=== PATIENT | female | born 1975 | race African-American/Black ===

== ENCOUNTER 2018-04-03 10:12 | Emergency (ER) | payer OTHER ==
[2018-04-03 10:23] VITALS: TEMP 98; BMI 31.5
--- NOTE | 2018-04-03 10:30 | PDOC ---
History of Present Illness - General Chief Complaint: Lightheaded Stated Complaint: PAIN Time Seen by Provider: 04/03/18 10:30 History Source: Patient Exam Limitations: No Limitations - History of Present Illness Initial Comments: 42 yo F w a pmh of hypertension, prediabetes, anemia, and hyperlipidemia presents to the ER after she experienced an episode of right sided stabbing chest discomfort earlier today which she says radiated up to her neck and down her right arm. She says the pain comes out of nowhere and is not associated with physical exertion. She does endorse right arm numbness when the discomfort comes on. She is not currently experiencing any chest discomfort. When the chest discomfort happens she often feels lightheaded. She denies any diaphoresis associated with these episodes. She endorses having the flu 3 weeks ago, otherwise no recent infections. She denies any fevers, chills, SOB, difficulty breathing, dysuria, frequency, urgency, abdominal pain, diarrhea, constipation, headache, blurry vision, neck pain, leg pain, vertigo, or weakness. PCP: Preet Busby PSH: Myomectomy Allergies: NKA, NKDA Social Hx: Denies smoking, drinking, or other substance usage Past History - Past Medical History Allergies/Adverse Reactions: Allergies Allergy/AdvReac Type Severity Reaction Status Date / Time No Known Drug Allergies Allergy Verified 04/03/18 10:18 Home Medications: Ambulatory Orders Amlodipine Besylate [Norvasc -] 10 mg PO DAILY 04/03/18 Metoprolol Succinate 25 mg PO DAILY 04/03/18 Anemia: Yes Asthma: No Cancer: No Cardiac Disorders: No CVA: No COPD: No CHF: No Dementia: No Diabetes: Yes (PRE) GI Disorders: No Disorders: No HTN: Yes Hypercholesterolemia: Yes Liver Disease: No Seizures: No Thyroid Disease: No - Surgical History Abdominal Surgery: No Appendectomy: No Cardiac Surgery: No Cholecystectomy: No Lung Surgery: No Neurologic Surgery: No Orthopedic Surgery: No - Suicide/Smoking/Psychosocial Hx Smoking Status: No Smoking History: Never smoked Number of Cigarettes Smoked Daily: 0 Hx Alcohol Use: No Drug/Substance Use Hx: No Substance Use Type: None Hx Substance Use Treatment: No Review of Systems - Review of Systems Able to Perform ROS?: Yes Comments:: CONSTITUTIONAL: Absent: fever, no chills, no fatigue EYES: Absent: visual changes ENT: Absent: ear pain, no sore throat CARDIOVASCULAR: Present: Chest pain, lightheadedness. Absent: no palpitations RESPIRATORY: Absent: cough, no SOB GI: Absent: abdominal pain, no nausea, no vomiting, no constipation, no diarrhea GENITOURINARY: Absent: dysuria, no frequency, no hematuria MUSKULOSKELETAL: Absent: back pain, no arthralgia, no myalgia SKIN: Absent: rash NEURO: Absent: headache *Physical Exam - Vital Signs Last Vital Signs Temp Pulse Resp BP Pulse Ox 98 F 91 H 19 145/95 100 04/03/18 10:18 04/03/18 10:18 04/03/18 10:18 04/03/18 10:18 04/03/18 10:18 - Physical Exam Comments: GENERAL: Well-appearing, well-nourished. No apparent distress. HEENT: Normocephalic, atraumatic. PERRL, EOM intact. CARDIOVASCULAR: Normal S1, S2. Regular rate and rhythm. CHEST: There is point tenderness at the costochondral junction which is reproducible and worse with right arm motion. PULMONARY: No evidence of respiratory distress. Lungs clear to auscultation bilaterally. No wheezing, rales or rhonchi. ABDOMEN: Soft, non-distended, non-tender. EXTREMITIES: Normal ROM in all four extremities. No gross deformities. SKIN: Warm, dry. No rash NEUROLOGICAL: No focal neurological deficits. Moderate Sedation - Procedure Monitoring Vital Signs: Procedure Monitoring Vital Signs Temperature 98 F 04/03/18 10:18 Pulse Rate 91 H 04/03/18 10:18 Respiratory Rate 19 04/03/18 10:18 Blood Pressure 145/95 04/03/18 10:18 O2 Sat by Pulse Oximetry (%) 100 04/03/18 10:18 ED Treatment Course - LABORATORY CBC & Chemistry Diagram: 04/03/18 11:15 04/03/18 11:20 Medical Decision Making - Medical Decision Making 42 yo F w a pmh of hypertension, prediabetes, anemia, and hyperlipidemia presents to the ER after she experienced an episode of right sided stabbing chest discomfort earlier today which she says radiated up to her neck and down her right arm. She says the pain comes out of nowhere and is not associated with physical exertion. She does endorse right arm numbness when the discomfort comes on. She is not currently experiencing any chest discomfort. When the chest discomfort happens she often feels lightheaded. She denies any diaphoresis associated with these episodes. She endorses having the flu 3 weeks ago, otherwise no recent infections. - VSS DDx IBNLT: ACS/NY, arrhythmia, electrolyte abnormality, costochondritis, post- viral pleuritis, dehydration, pneumothorax, PNA Plan: Labs, Urine, CXR, EKG, analgesia, IV hydration, re-assess. Labs unremarkable and WNL CXR clean EKG shows no ST segment elevation or depression. Not concerning for ACS. The point tenderness at the costochondral junction is suggestive of costochondritis. Patient feels better after analgesia. Will DC with cardio follow up. *DC/Admit/Observation/Transfer Diagnosis at time of Disposition: Atypical chest pain, Costochondritis - Discharge Dispostion Disposition: HOME Condition at time of disposition: Improved Decision to Admit order: No - Referrals Referrals: Doyle Yadav MD [Staff Physician] - - Patient Instructions Printed Discharge Instructions: DI for Atypical Chest Pain, DI for Costochondritis, DI for Chest Pain Additional Instructions: You came into the ER after experiencing some right sided rib discomfort. We looked at your blood and urine and found no abnormalities. We also did a chest x -ray and and electrocardiogram which were normal and had no obvious abnormalities. We believe your chest discomfort is musculoskeletal in nature, possibly costochondritis - see attached handout for further explanation. We are giving you the number for a nurse rn bsn to follow up with. Please make sure to schedule an appointment in the next 48 to 72 hours. Take advil/motrin/tylenol as needed for pain control. Drink plenty of fluids. Come back to the ER if your pain worsens, you get a fever, can't breathe or have any other new or worsening concerns. Thank you for coming to the [facility] ER. We hope you feel better soon! Print Language: MAURITIAN - Post Discharge Activity
[2018-04-03] MEDS ORDERED: SODIUM CHLORIDE 1,000 ML IV STA (10:38)
[2018-04-03] MEDS ORDERED: ASPIRIN 81 MG CHEWABLE TABLETS PO ONE (10:38)
[2018-04-03] MEDS ORDERED: ACETAMINOPHEN 325 MG TABLET (FP) PO ONE (10:39)
--- NOTE | 2018-04-03 11:09 | PDOC ---
Attending Attestation - Resident Resident Name: Silvio Pierson - ED Attending Attestation I have performed the following: I have examined & evaluated the patient, The case was reviewed & discussed with the resident, I agree w/resident's findings & plan, Exceptions are as noted - HPI HPI: 04/03/18 11:24 42y F hx of htn, hl, pre-dm presents with complaint of cp, dizziness. Pt states she was feeling well this morning, was at work was drinking coffee and got up to walk around and noticed she started feeling lightheaded like she was about to pass out associated with palpitations, mild R sharp sided chest pain, tingling in her arms lasting a few seconds before resolving. associated with nausea w/o vomiting, diaphoresis. Pt denies any sob,hemoptysis, cough, vertigo, focal weakness, diarrhea, melena, bpr, dysuria, frequency. Pt notes she had similar symptoms last year wand went to an ER in [place] and was observed. She was given fu with primary care. notes she is currently feeling better. - Physicial Exam PE: 04/03/18 11:28 GENERAL: The patient is awake, alert, and fully oriented, Nontoxic - in no acute distress. HEAD: Normocephalic, atraumatic. EYES: extraocular movements intact, sclera anicteric, conjunctiva clear. ENT: Normal voice, Moist mucous membranes. NECK: Normal range of motion, supple LUNGS: Breath sounds equal, clear to auscultation bilaterally. No wheezes, no rhonchi, no rales. HEART: Regular rate and rhythm, normal S1 and S2 without murmur, rub or gallop. ABDOMEN: Soft, nontender, No guarding, no rebound. . No CVA tenderness EXTREMITIES: Normal range of motion, no edema. No clubbing or cyanosis. No cords, erythema, or tenderness. NEUROLOGICAL: No facial assymetry, Normal speech, PSYCH: Normal mood, normal affect. SKIN: Warm, Dry, normal turgor, - Medical Decision Making 04/03/18 11:28 ddx is wide and includes but is not limieted to arrthmia, acs, vertigo metabolic dernagement, anemia will ck labs, screening ekg and trop fluids for hydration bp on both arms are symmetric 138/92 on R arm and 136/86 on L arm, so do not think dissection likely (her symptoms of pain lasting for split second then resolving is also inconsistent) will reassess 04/03/18 13:09 pt feelig improved lbs reivewed pt does have worsening of her symptoms with movement of her arm and is ttp suspect possible msk cause will recommend uspportive care Heart Score/ECG Review - ECG Impressions Comment:: 04/03/18 11:46 Twelve-lead EKG was performed and reviewed by me. There is normal sinus rhythm with a normal rate. rate of 93 The axis is normal. The intervals are normal. abnormal R wave progression
[2018-04-03] MEDS ORDERED: ACETAMINOPHEN 325 MG TABLET (FP) ONE ×2 (11:19→11:29)
[2018-04-03] MEDS ORDERED: ASPIRIN 81 MG CHEWABLE TABLETS ONE (11:20)
[2018-04-03 11:36] LABS: BASO % 0.9 % (0-2.0); EOS % 4.7 % (0-4.5); HEMATOCRIT 35.4 % (32.4-45.2); MCH 26.3 pg (25.7-33.7); MCHC 33.9 g/dl (32.0-36.0); MEAN CELL VOLUME 77.5 fl (80-96); MEAN PLT VOLUME 8.3 fl (7.5-11.1); MONO % 10.8 % (3.8-10.2); NEUT % 47.6 % (42.8-82.8); PLATELET COUNT 305 K/MM3 (134-434); RBC 4.57 M/mm3 (3.60-5.2); WHITE BLOOD COUNT 5.5 K/mm3 (4.0-10.0)
[2018-04-03 12:00] LABS: HCG,QUALITATIVE URINE Negative
[2018-04-03 12:05] LABS: URINE APPEARANCE CLEAR; URINE BILIRUBIN NEGATIVE (<2.0 mg/dL); URINE COLOR LTYELLOW; URINE GLUCOSE (UA) NEGATIVE (NEGATIVE); URINE KETONE NEGATIVE (NEGATIVE); URINE LEUK ESTERASE NEGATIVE (NEGATIVE); URINE NITRITE NEGATIVE (NEGATIVE); URINE PROTEIN NEGATIVE (NEGATIVE); URINE UROBILINOGEN NEGATIVE mg/dL (0.2-1.0)
[2018-04-03 12:05] LABS: ALBUMIN 3.3 g/dl (3.4-5.0); ALK PHOS 44 U/L (45-117); ANION GAP 7 MMOL/L (8-16); BILIRUBIN,TOTAL 0.2 mg/dL (0.2-1); BLOOD UREA NITROGEN 11 mg/dL (7-18); CALCIUM 8.9 mg/dL (8.5-10.1); CHLORIDE 106 mmol/L (98-107); CO2 27 mmol/L (21-32); CREATININE 0.7 mg/dL (0.55-1.3); GLUCOSE,RANDOM 87 mg/dL (74-106); SGOT/AST 15 U/L (15-37); SGPT/ALT 17 U/L (13-61); SODIUM 140 mmol/L (136-145); TOT PROT 7.2 g/dl (6.4-8.2)
[2018-04-03 14:01] VITALS: BP 117/68; PULSE 76
--- NOTE | 2018-04-03 16:24 | EKG ---
Test Reason : Blood Pressure : / mmHG Vent. Rate : 093 BPM Atrial Rate : 093 BPM P-R Int : 140 ms QRS Dur : 086 ms QT Int : 382 ms P-R-T Axes : 048 -11 017 degrees QTc Int : 474 ms SINUS RHYTHM WITH PREMATURE ATRIAL COMPLEXES WITH ABERRANT CONDUCTION MINIMAL VOLTAGE CRITERIA FOR LVH, MAY BE NORMAL VARIANT SEPTAL INFARCT , AGE UNDETERMINED ABNORMAL ECG WHEN COMPARED WITH ECG OF 18-JUN-2014 15:02, ABERRANT CONDUCTION IS NOW PRESENT SEPTAL INFARCT IS NOW PRESENT NON-SPECIFIC CHANGE IN ST SEGMENT IN ANTERIOR LEADS Confirmed by Wolfgang Riggs ([id number]) on 04/03/2018 4:24:13 PM Referred By: Confirmed By:Wolfgang Riggs
== END 2018-04-03 13:55 | disposition home or self-care (01) ==
LOC: JER 10:12
PROC: 3E0337Z Introduction of Electrolytic and Water Balance Substance into Peripheral Vein, Percutaneous Approach (ICD-10-PCS; principal; 2018-04-03)
DX: R07.9 Chest pain, unspecified (principal); M94.0 Chondrocostal junction syndrome [Tietze]; I10 Essential (primary) hypertension; E78.5 Hyperlipidemia, unspecified; R73.03 Prediabetes
CPT/HCPCS: 36415; 71046-TC-FY; 80053; 81003; 84484; 84703; 85025; 93005; 93010; 99283-25; J7030

== ENCOUNTER 2021-05-23 14:54 | Emergency (ER) | payer BC, OTHER ==
[2021-05-23 15:00] VITALS: BP 124/85; PULSE 79; TEMP 98; BMI 33.6
[2021-05-23] MEDS ORDERED: IBUPROFEN 600 MG TABLET (FP) PO ONE ×2 (16:16→16:59)
== END 2021-05-23 17:13 | disposition home or self-care (01) ==
LOC: JERFT 14:54
DX: S93.401A Sprain of unspecified ligament of right ankle, initial encounter (principal); W01.0XXA Fall on same level from slipping, tripping and stumbling without subsequent striking against object, initial encounter
CPT/HCPCS: 73562-TC-RT-FY; 73610-TC-RT-FY; 73630-TC-RT-FY; 99284-25

== ENCOUNTER 2022-09-21 10:28 | Emergency (ER) | payer OTHER, BC ==
[2022-09-21 11:03] VITALS: RESP 18; BMI 34.2
[2022-09-21] MEDS ORDERED: ACETAMINOPHEN 1000 MG/100 ML BAG IVPB ONE (11:13)
[2022-09-21] MEDS ORDERED: ACETAMINOPHEN INJECTION 100 ML IVPB ONE (11:21)
[2022-09-21 12:25] LABS: URINE APPEARANCE CLEAR; URINE BILIRUBIN NEGATIVE (NEGATIVE); URINE COLOR YELLOW; URINE GLUCOSE (UA) NEGATIVE (NEGATIVE); URINE KETONE NEGATIVE (NEGATIVE); URINE LEUK ESTERASE NEGATIVE (NEGATIVE); URINE NITRITE NEGATIVE (NEGATIVE); URINE PROTEIN NEGATIVE (NEGATIVE); URINE UROBILINOGEN 0.2 mg/dL (0.2-1.0)
[2022-09-21 12:34] LABS: INR 1.08 (0.83-1.09); PROTHROMBIN TIME (PATIENT) 12.5 SEC (9.7-13.0)
[2022-09-21 12:46] LABS: POTASSIUM 4.3 mmol/L (3.5-5.1)
[2022-09-21 12:48] LABS: CALCIUM 9.5 mg/dL (8.5-10.1)
[2022-09-21 12:49] LABS: ALBUMIN 3.5 g/dl (3.4-5.0); BASO % 0.4 % (0-2.0); BLOOD UREA NITROGEN 11.5 mg/dL (7-18); EOS % 2.1 % (0-4.5); HEMATOCRIT 40.8 % (32.4-45.2); MCH 27.9 pg (25.7-33.7); MCHC 34.4 g/dl (32.0-36.0); MEAN CELL VOLUME 81.3 fl (80-96); MEAN PLT VOLUME 8.7 fl (7.5-11.1); MONO % 6.9 % (3.8-10.2); NEUT % 56.6 % (42.8-82.8); PLATELET COUNT 280 10^3/uL (134-434); RBC 5.02 M/mm3 (3.60-5.2); RDW 14.1 % (11.6-15.6); WHITE BLOOD COUNT 6.9 K/mm3 (4.0-10.0)
[2022-09-21 12:51] LABS: CREATININE 0.8 mg/dL (0.55-1.3)
[2022-09-21 12:53] LABS: BILIRUBIN,TOTAL 0.2 mg/dL (0.2-1); TOT PROT 7.6 g/dl (6.4-8.2)
[2022-09-21 16:37] VITALS: BP 138/78; PULSE 72; TEMP 98.5
== END 2022-09-21 16:37 | disposition home or self-care (01) ==
LOC: JER 10:28
PROC: 3E033NZ Introduction of Analgesics, Hypnotics, Sedatives into Peripheral Vein, Percutaneous Approach (ICD-10-PCS; principal; 2022-09-21)
DX: R10.13 Epigastric pain (principal); M25.511 Pain in right shoulder; M25.512 Pain in left shoulder; M25.551 Pain in right hip; R11.0 Nausea; R53.1 Weakness; V89.2XXA Person injured in unspecified motor-vehicle accident, traffic, initial encounter; Y93.I9 Activity, other involving external motion; Y92.410 Unspecified street and highway as the place of occurrence of the external cause
CPT/HCPCS: 36415; 71045-TC-FY; 72170-TC-FY; 73030-TC-LT-FY; 73030-TC-RT-FY; 73502-TC-RT-FY; 74177-TC; 80053; 81003; 82962; 85025; 85610; 99285-25; Q9967